=== PATIENT | female | born 1980 | race Caucasian/White ===

== ENCOUNTER 2021-03-30 12:18 | Emergency (ER) | payer MEDICAID ==
[~2021-03-30] VITALS: Ht 160 cm; Wt 83.2 kg
[2021-03-30 13:14] LABS: BASOPHILS % (AUTO) 1 % (0-1); EOSINOPHILS % (AUTO) 1 % (1-7); LYMPHOCYTES % (AUTO) 30 % (22-44); MEAN CORPUSCULAR HEMOGLOBIN 31.5 pg (27.0-34.8); MEAN CORPUSCULAR HGB CONC 34.4 g/dL (32.4-35.8); MEAN PLATELET VOLUME 8.4 fL (7.4-10.4); MONOCYTES % (AUTO) 5 % (2-9); NEUTROPHILS % (AUTO) 64 % (42-75); PLATELET COUNT 210 x10^3/uL (130-400); RED BLOOD COUNT 4.22 x10^6/uL (3.82-5.3); RED CELL DISTRIBUTION WIDTH 12.3 % (9.6-15.2)
--- NOTE | 2021-03-30 13:19 | NUR ---
PT HAS CO ABDOMINAL PAIN, EPIGASTRIC W SOB. [facility] SENT
[2021-03-30 13:20] LABS: ALANINE AMINOTRANSFERASE 34 U/L (12-78); ALBUMIN 3.5 g/dL (3.4-5.0); CALCIUM 8.9 mg/dL (8.5-10.1); CHLORIDE 109 mmol/L (98-107); CREATININE 0.62 mg/dL (0.55-1.02)
[2021-03-30 13:24] LABS: ALKALINE PHOSPHATASE 69 U/L (45-117); BILIRUBIN,TOTAL 0.5 mg/dL (0.2-1.0); TOTAL PROTEIN 6.5 g/dL (6.4-8.2); TROPONIN I < 0.015 ng/mL (0.000-0.045)
[2021-03-30 13:26] LABS: MICROSCOPIC NOT IND
[2021-03-30 13:37] LABS: ANION GAP 3 mmol/L (5-15)
--- NOTE | 2021-03-30 15:18 | NUR ---
report from marisel willoughby
[2021-03-30 15:32] VITALS: BP 118/60
== END 2021-03-30 15:35 | disposition home or self-care (01) ==
LOC: ED 15:29
DX: R10.13 Epigastric pain (principal); Z90.49 Acquired absence of other specified parts of digestive tract
CPT/HCPCS: 36415; 71045; 76700; 80053; 81003; 83690; 84484; 85025; 93005; 99285